=== PATIENT | male | born 1980 | race Caucasian/White ===

== ENCOUNTER 2021-02-25 14:31 | Emergency (ER) | payer OTHER ==
[~2021-02-25] VITALS: Ht 177.8 cm; Wt 82.0 kg
[2021-02-25] MEDS ORDERED: ONDANSETRON HCL 4MG/2ML INJ IV STA (16:17)
[2021-02-25] MEDS ORDERED: LORAZEPAM 2MG/ML CPJ IV ONE (16:30)
[2021-02-25] MEDS ORDERED: SODIUM CHLORIDE 0.9% 1,000 ML IV ONE (16:30)
[2021-02-25 16:36] LABS: CHLORIDE 103 mEq/L (98-107)
[2021-02-25 16:38] LABS: BASOPHILS % 0.6 % (0.0-2.0); EOSINOPHILS % 0.8 % (0.0-5.0); HEMOGLOBIN. 16.8 g/dL (14.0-18.0); LYMPHOCYTES % 13.9 % (20.0-50.0); MEAN CORPUSCULAR HEMOGLOBIN 32.6 pg (28.0-32.0); MEAN CORPUSCULAR VOLUME 89.4 fL (80.0-94.0); MEAN PLATELET VOLUME 8.9 fl (7.4-10.4); MONOCYTES % 5.5 % (2.0-8.0); NEUTROPHILS % 79.2 % (40.0-76.0); PLATELET 208 x1000/uL (130-400); RED BLOOD CELL COUNT 5.15 mill/uL (4.7-6.1); RED CELL DISTRIBUTION WIDTH 12.7 % (11.6-14.6)
[2021-02-25 16:41] LABS: ETHANOL BLOOD < 10 mg/dL
[2021-02-25 17:10] LABS: CLARITY URINE CLEAR (CLEAR); COLOR URINE YELLOW (YELLOW); KETONES URINE 1+ (NEGATIVE); LEUKOCYTE ESTERASE URINE NEGATIVE (NEGATIVE); NITRITE URINE NEGATIVE (NEGATIVE); OCCULT BLOOD URINE NEGATIVE (NEGATIVE); PH URINE 7.5 (4.5-8.0); PROTEIN URINE NEGATIVE (NEGATIVE); SPECIFIC GRAVITY URINE 1.019 (1.005-1.030); UROBILINOGEN URINE 0.2 E.U./dL (0.2-1.0)
[2021-02-25 17:25] LABS: *AMPHETAMINES SCREEN URINE NEGATIVE (NEGATIVE); CANNABINOID URINE SCREEN NEGATIVE (NEGATIVE); OPIATES URINE SCREEN NEGATIVE (NEGATIVE); PHENCYCLIDINE URINE SCREEN NEGATIVE (NEGATIVE)
[2021-02-25 17:26] LABS: *BARBITURATES SCREEN URINE NEGATIVE (NEGATIVE); *BENZODIAZEPINES SCREEN URINE NEGATIVE (NEGATIVE); *COCAINE SCREEN URINE NEGATIVE (NEGATIVE); METHADONE URINE SCREEN NEGATIVE (NEGATIVE)
[2021-02-25] MEDS ORDERED: MECLIZINE 25MG TABLET PO ONE (18:00)
[2021-02-25] MEDS ORDERED: MECL-159 MT (19:15)
[2021-02-25] MEDS ORDERED: ONDA4TAB5 MT (19:15)
[2021-02-25 19:52] VITALS: BP 149/80
== END 2021-02-25 19:57 | disposition home or self-care (01) ==
LOC: ER 14:31
DX: R42 Dizziness and giddiness (principal); F43.9 Reaction to severe stress, unspecified
CPT/HCPCS: 36415; 70496; 70498; 80053; 80305; 80320; 81003; 82962; 84484; 85025; 93005; 96361; 96374; 96375; 99285; J2060; J2405; J7030; J8597; Z7610; G0480